=== PATIENT | female | born 1960 | race Caucasian/White ===

== ENCOUNTER 2018-07-25 09:35 | Outpatient (CLI) | payer OTHER | END 2018-07-25 09:36 | disposition home or self-care (01) | LOC: BICMAMMO 09:35 | PROVIDERS: ATTEND Specialist | DX: Z12.31 Encounter for screening mammogram for malignant neoplasm of breast (principal); N63.10 Unspecified lump in the right breast, unspecified quadrant; Z80.3 Family history of malignant neoplasm of breast | CPT/HCPCS: 77063; 77067 ==

== ENCOUNTER 2018-07-31 14:37 | Outpatient (CLI) | payer OTHER | END 2018-07-31 14:38 | disposition home or self-care (01) | LOC: BICULT 14:37 | PROVIDERS: ATTEND Specialist | DX: N63.10 Unspecified lump in the right breast, unspecified quadrant (principal) ==

== ENCOUNTER 2019-08-23 10:04 | Outpatient (CLI) | payer OTHER ==
--- NOTE | 2019-08-23 12:40 | ULT ---
FOCUSED ULTRASOUND RIGHT BREAST: DATE: 08/23/2019. HISTORY: A 59-year-old female with a subcentimeter spiculated lesion in the upper outer right breast seen on m ammography. FINDINGS: Focused ultrasound of the right upper outer quadrant is performed. No definitive correlate for the s uspicious mammographic finding can be visualized on this exam. IMPRESSION: 1. Unremarkable focused ultrasound of the right breast. 2. The lesion seen on mammography is a BIRADS category 4 lesion and thus, further assessment via jed reotactic biopsy or needle localization and excisional biopsy is advised. Results were discussed with Dr. Rodriguez on the afternoon of 08/23/2019 as well as with the patient at t he time of interpretation. CODE CR POS: OFF
--- NOTE | 2019-08-23 13:18 | MMO ---
Bilateral MAMMO Bilat Diag [facility]+EDUARDO. CLINICAL HISTORY: Patient is 59 years old and is seen for diagnostic exam. The patient has the following family history of breast cancer: mother, malignant (generic). The patient has no personal history of cancer. VIEWS: The views performed were: bilateral craniocaudal with tomosynthesis; bilateral mediolateral oblique with tomosynthesis; and bilateral mediolateral with tomosynthesis. FILMS COMPARED: The present examination has been compared to prior imaging studies performed at [facility] on 07/20/2016, 07/24/2017, 07/25/2018 and 08/23/2019. This study has been interpreted with the assistance of computer-aided detection. MAMMOGRAM FINDINGS: There is an irregular mass measuring 7 millimeters with spiculated margins seen in the upper-outer region of the right breast. Focused ultrasound failed to demonstrate a correlate. In the left breast, there are no suspicious masses, calcifications or areas of architectural distortion. IMPRESSION: MASS IN THE RIGHT BREAST IS SUSPICIOUS. BIOPSY IS RECOMMENDED. THE RESULTS OF THIS EXAM WERE SENT TO THE PATIENT. ACR BI-RADS Category 4 - Suspicious abnormality - biopsy should be considered. As no sonographic correlate could be seen, surgical consultation for needle localization followed by excisional biopsy is recommended. MAMMOGRAPHY NOTE: 1. A negative mammogram report should not delay a biopsy if a dominant of clinically suspicious mass is present. 2. Approximately 10% to 15% of breast cancers are not detected by mammography. 3. Adenosis and dense breasts may obscure an underlying neoplasm. Reported by: MARCY GRAY MD Electonically Signed: [id number]
== END 2019-08-23 10:05 | disposition home or self-care (01) ==
LOC: BICMAMMO 10:04
PROVIDERS: ATTEND Specialist
DX: R92.8 Other abnormal and inconclusive findings on diagnostic imaging of breast (principal)
CPT/HCPCS: 77066; G0279

== ENCOUNTER 2019-09-24 07:51 | Day surgery (SDC) | payer OTHER ==
[2019-09-19 14:42] VITALS: BMI 31.4
--- NOTE | 2019-09-24 09:17 | MMO ---
Mammographic guided needle localization right breast mass HISTORY: Abnormal mammogram. Right breast mass. FINDINGS: After explaining the procedure and answering all questions, the subtle spiculated isodense lesion within the superior lateral aspect of the right breast was visualized. Sterile technique, buffered local anesthesia, mammographic guidance, and a superior approach were used to carefully adva nce a 19-gauge [place] needle through the posterior margin of the right breast mass. Position was confirmed with mammography. Final images were marked as patient was transferred to day surgery. Patient tolerated the procedure well and was transferred in good condition. IMPRESSION: Technically successful needle localization right breast mass.
[2019-09-24] MEDS ORDERED: Ondansetron PF 4 MG/2 ML Vial ONE (10:38)
[2019-09-24] MEDS ORDERED: PROPOFOL 200 MG/20 ML VIAL ONE (10:38)
[2019-09-24] MEDS ORDERED: Lidocaine 1% PF 5 ML VIAL ONE (10:38)
[2019-09-24] MEDS ORDERED: Glycopyrrolate 0.2 MG/ML 5 ML SYRINGE ONE (10:38)
--- NOTE | 2019-09-24 12:10 | MMO ---
Surgical specimen mammography HISTORY: Right breast biopsy findings: Mammographic evaluation of the surgical specimen submitted by Dr. Umana shows heterogeneous density with internal areas of hyperdensity. While the distinct mass is not well visualized, it was not necessarily expected given the appearance of the lesion on the original mammogram. Findings were relayed to Dr. Umana in the OR at the time of the exam.
--- NOTE | 2019-09-26 14:01 | OP ---
DATE OF PROCEDURE: PREOPERATIVE DIAGNOSIS: Right breast mammographic abnormality. POSTOPERATIVE DIAGNOSIS: Right breast mammographic abnormality. PROCEDURE PERFORMED: Excision of right breast abnormality after needle localization. ANESTHESIA: General. ESTIMATED BLOOD LOSS: Minimal. COMPLICATIONS: None. SPECIMENS: Right breast marked with 2 short superior 1 long lateral, sent to X-ray, which revealed the lesion to be in the specimen, it was sent to Path for final diagnosis. An additional deep margin was sent with stitch on new margin. DESCRIPTION OF PROCEDURE: The patient was taken to the operating room, laid supine on the operating room table. After general anesthetic was obtained, the right breast was prepped and draped in a sterile fashion. Incision was made on the areolar edge. Dissection was taken down to needle localization wire. This was deep in the right upper outer quadrant of the right breast. Flaps were raised superomedially and inferolaterally around this and deep as well. The breast specimen was marked with 2 short superior 1 long lateral, sent to Specimen X-ray, which revealed the area to be likely seen in the specimen. It was thus sent to Path for final diagnosis. Because the end of the wire was exposed during excision, an additional deep margin was sent with stitch on new margin. The wound was irrigated. Local anesthetic was applied. The wound was closed using 3-0 Vicryl, 4-0 Monocryl, and Dermabond. The patient was sent to Recovery in stable condition. All instrument counts, needle counts, and lap counts were correct. Job ID: [id number]
== END 2019-09-24 13:36 | disposition home or self-care (01) ==
LOC: MAMMO 07:51 → SDC 13:36
PROVIDERS: ATTEND Surgery
PROC: 0HBT0ZZ Excision of Right Breast, Open Approach (ICD-10-PCS; principal; 2019-09-24)
DX: D05.11 Intraductal carcinoma in situ of right breast (principal); Z87.891 Personal history of nicotine dependence; Z88.2 Allergy status to sulfonamides
CPT/HCPCS: 19281; 76098; 88307; 88341; 88342; 88361; J2001; J2405; J2704

== ENCOUNTER 2019-12-10 13:03 | Outpatient (CLI) | payer OTHER ==
--- NOTE | 2019-12-10 13:48 | BD ---
BONE DENSITOMETRY USING DEXA: Date: 12/10/2019 HISTORY: Postmenopausal screening for osteoporosis. Other specified menopausal lymphedema, menopausal disorder s. FINDINGS: Lumbar Spine: BMD (g/cm2) L1 0.809 T-Score: -1.6 Z-Score: -0.4 L2 0.967 T-Score: -0.6 Z-Score: 0.8 L3 1.100 T-Score: 0.1 Z-Score: 1.6 L4 1.120 T-Score: 0.5 Z-Score: 2.0 L1-L4 1.005 T-Score: -0.4 Z-Score: 1.0 Femoral Neck: 0.854 T-Score: 0.0 Z-Score: 1.3 Total Femur: 1.035 T-Score: 0.8 Z-Score: 1.7 IMPRESSION: Normal bone mineral density. POS: TPC
== END 2019-12-10 13:04 | disposition home or self-care (01) ==
LOC: BICMAMMO 13:03
PROVIDERS: ATTEND Internal Medicine Hematology & Oncology
DX: Z13.820 Encounter for screening for osteoporosis (principal); C50.511 Malignant neoplasm of lower-outer quadrant of right female breast; Z78.0 Asymptomatic menopausal state
CPT/HCPCS: 77080

== ENCOUNTER 2020-08-26 09:11 | Outpatient (CLI) | payer BC ==
--- NOTE | 2020-08-26 09:46 | MMO ---
Bilateral MAMMO Bilat Diag [facility]DI+EDUARDO. CLINICAL HISTORY: Patient is 60 years old and is seen for diagnostic exam. The patient has the following family history of breast cancer: mother, malignant (generic). 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 in the right breast in September,. The patient has a history of right Lumpectomy in September, and right Ultrasound Guided Core Biopsy - malignant. VIEWS: The views performed were: bilateral craniocaudal with tomosynthesis; bilateral mediolateral oblique with tomosynthesis; and bilateral mediolateral with tomosynthesis. FILMS COMPARED: The present examination has been compared to prior imaging studies performed at [facility] on 07/24/2017, 07/25/2018 and 08/23/2019. This study has been interpreted with the assistance of computer-aided detection. MAMMOGRAM FINDINGS: The breasts are heterogeneously dense, which could obscure a lesion on mammography. There is an area of architectural distortion with associated post-surgical scar seen in the right breast. There are no suspicious masses, suspicious calcifications, or new areas of architectural distortion. IMPRESSION: A ROUTINE FOLLOW-UP MAMMOGRAM IN 1 YEAR IS RECOMMENDED. THE RESULTS OF THIS EXAM WERE SENT TO THE PATIENT. ACR BI-RADS Category 2 - Benign finding MAMMOGRAPHY NOTE: 1. A negative mammogram report should not delay a biopsy if a dominant of clinically suspicious mass is present. 2. Approximately 10% to 15% of breast cancers are not detected by mammography. 3. Adenosis and dense breasts may obscure an underlying neoplasm. Reported by: LYDIA LUJAN MD Electonically Signed: [id number]
== END 2020-08-26 09:12 | disposition home or self-care (01) ==
LOC: BICMAMMO 09:11
PROVIDERS: ATTEND Surgery
DX: D05.10 Intraductal carcinoma in situ of unspecified breast (principal)
CPT/HCPCS: 77066; G0279

== ENCOUNTER 2021-08-30 13:38 | Outpatient (CLI) | payer BC | END 2021-08-30 13:39 | disposition home or self-care (01) | LOC: BICMAMMO 13:38 | PROVIDERS: ATTEND Internal Medicine Hematology & Oncology | DX: Z08 Encounter for follow-up examination after completed treatment for malignant neoplasm (principal); Z85.3 Personal history of malignant neoplasm of breast; Z80.3 Family history of malignant neoplasm of breast | CPT/HCPCS: 77066; G0279 ==

== ENCOUNTER 2022-01-12 10:39 | Outpatient (CLI) | payer BC | END 2022-01-12 10:40 | disposition home or self-care (01) | LOC: BICMAMMO 10:39 | PROVIDERS: ATTEND Internal Medicine Hematology & Oncology | DX: Z13.820 Encounter for screening for osteoporosis (principal); Z78.0 Asymptomatic menopausal state; M85.88 Other specified disorders of bone density and structure, other site | CPT/HCPCS: 77080 ==

== ENCOUNTER 2023-09-06 12:58 | Outpatient (CLI) | payer BC | END 2023-09-06 12:59 | disposition home or self-care (01) | LOC: BICMAMMO 12:58 | PROVIDERS: ATTEND Internal Medicine Hematology & Oncology | DX: Z08 Encounter for follow-up examination after completed treatment for malignant neoplasm (principal); Z85.3 Personal history of malignant neoplasm of breast | CPT/HCPCS: 77066; G0279 ==

== ENCOUNTER 2024-09-09 08:38 | Outpatient (CLI) | payer BC | END 2024-09-09 08:39 | disposition home or self-care (01) | LOC: BICMAMMO 08:38 | PROVIDERS: ATTEND Internal Medicine Hematology & Oncology | DX: Z86.000 Personal history of in-situ neoplasm of breast (principal) | CPT/HCPCS: 77066; G0279 ==

== ENCOUNTER 2025-09-10 12:25 | Outpatient (CLI) | payer BC | END 2025-09-10 12:26 | disposition home or self-care (01) | LOC: BICMAMMO 12:25 | PROVIDERS: ATTEND Internal Medicine Hematology & Oncology | DX: Z12.31 Encounter for screening mammogram for malignant neoplasm of breast (principal); Z80.3 Family history of malignant neoplasm of breast; Z86.000 Personal history of in-situ neoplasm of breast; Z98.890 Other specified postprocedural states | CPT/HCPCS: 77063; 77067 ==